=== PATIENT | female | born 1955 | race Caucasian/White ===

== ENCOUNTER 2018-07-23 08:50 | Day surgery (SDC) | payer MEDICARE, OTHER, SELFPAY ==
[2018-07-23] VITALS (10 sets, daily range): BP systolic 89–112; BP diastolic 51–75; PULSE 71–90; RESP 16; TEMP 36.1–37.1; O2SAT 90–96; BMI 28.2
--- NOTE | 2018-07-23 | IMM_PTH ---
PATIENT: JULIO JOHNSON LOC: [facility] [place] U#:[id number] AGE/SX: 63/F ROOM: RE07/23/[address]: Dr. Sole Linder MD : 1955 BED: DIS: 07/23/2018 SPEC #: [id number] RECD: 07/27/18 13:57 STATUS: PRERNA REQ #: [id number] JAJA: 07/23/18 00:[address]: Sole Linder DEPT: IMMUNOHISTOCHEMISTRY RECD BY: Mary Madsen ENTERED: 07/27/18 13:58 SP TYPE: IMMUNO OTHR DR: Dr. Samson Bauman DO Tissues: A - Axillary lymph node, NOS B - Axillary lymph node, NOS Procedures: CK7 (add) E-CAD (add) Pankeratin (initial) GATA3 (add) PHYSICIAN & INSTITUTION [place] [id number] SPECIMEN INFORMATION: Tissue Source: A - Right axillary lymph nodes, B - Additional right axillary lymph nodes, C - Right breast lumpecotmy Clinical Info: Right breast cancer, right breast intraductal papilloma Specimen Number: [id number] A1, B & C1 CPT code: 32075 x3, 11613 x4 METHODOLOGY: Deparaffinized sections of prefer/formalin-fixed tissue or PAP/DQ stained slides are incubated with monoclonal/polyclonal antibodies/oligonucleotide probes. Localization is made via biotin free immunoperoxidase method. Appropriate controls are performed and reacted as expected. Results on target cell population are indicated in the following table: RESULTS: ANTIBODY / CLONE RESULT Block A1 AE1-3 (AE1/AE3/PCK26) negative CK7 (OV-TL12/30) negative Block B AE1-3 (AE1/AE3/PCK26) negative CK7 (OV-TL12/30) negative Block C1 AE1-3 (AE1/AE3/PCK26) positive GATA3 (L50-823) positive E-Cad (ECH-6) positive These tests were developed and their performance characteristics determined by [facility]. They may not have been cleared or approved by the U.S. Food and Drug Administration. The FDA has determined that such clearance or approval is not necessary. INTERPRETATION: A. Right axillary lymph nodes, biopsy: Two out of two lymph nodes negative for carcinoma. B. Additional right axillary lymph nodes, biopsy: Three out of three lymph nodes negative for carcinoma. C. 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 AM:rg 07/28/18 AM:rg 07/29/18
--- NOTE | 2018-07-23 | IMM_PTH ---
PATIENT: JULIO JOHNSON LOC: [facility] [place] U#:[id number] AGE/SX: 63/F ROOM: RE07/23/[address]: Dr. Sole Linder MD : 1955 BED: DIS: 07/23/2018 SPEC #: [id number] RECD: 07/27/18 13:57 STATUS: PRERNA REQ #: [id number] JAJA: 07/23/18 00:[address]: Sole Linder DEPT: IMMUNOHISTOCHEMISTRY RECD BY: Mary Madsen ENTERED: 07/27/18 13:58 SP TYPE: IMMUNO OTHR DR: Dr. Samson Bauman DO Tissues: A - Axillary lymph node, NOS B - Axillary lymph node, NOS Procedures: CK7 (add) Pankeratin (initial) PHYSICIAN & INSTITUTION [place] [address] SPECIMEN INFORMATION: Tissue Source: A - Right axillary lymph nodes, B - Additional right axillary lymph nodes Clinical Info: Right breast cancer, right breast intraductal papilloma Specimen Number: [id number] A1 & B CPT code: 03387 x2, 69080 x2 METHODOLOGY: Deparaffinized sections of prefer/formalin-fixed tissue or PAP/DQ stained slides are incubated with monoclonal/polyclonal antibodies/oligonucleotide probes. Localization is made via biotin free immunoperoxidase method. Appropriate controls are performed and reacted as expected. Results on target cell population are indicated in the following table: RESULTS: ANTIBODY / CLONE RESULT Block A1 AE1-3 (AE1/AE3/PCK26) negative CK7 (OV-TL12/30) negative Block B AE1-3 (AE1/AE3/PCK26) negative CK7 (OV-TL12/30) negative These tests were developed and their performance characteristics determined by [facility]. They may not have been cleared or approved by the U.S. Food and Drug Administration. The FDA has determined that such clearance or approval is not necessary. INTERPRETATION: A. Right axillary lymph nodes, biopsy: Two out of two lymph nodes negative for carcinoma. B. Additional right axillary lymph nodes, biopsy: Three out of three lymph nodes negative for carcinoma. AM:marjorie 07/28/18
--- NOTE | 2018-07-23 | AXNB_PTH ---
PATIENT: JULIO JOHNSON LOC: [facility] [place] U#:[id number] AGE/SX: 63/F ROOM: RE07/23/[address]: Dr. Sole Linder MD : 1955 BED: DIS: 07/23/2018 SPEC #: [id number] RECD: 07/23/18 12:49 STATUS: PRERNA RESonu #: [id number] JAJA: 07/23/18 00:[address]: Sole Linder DEPT: SURGICAL PATHOLOGY RECD BY: Mary Madsen ENTERED: 07/23/18 13:52 SP TYPE: AX NODE BX OTHR DR: Dr. Samson Bauman, DO Tissues: A - Axillary lymph node, NOS B - Axillary lymph node, NOS C - Right breast, NOS D - Right breast, NOS Procedures: Frozen Section (charge) Surgery Specimen Level V HEADER OPERATION: Breast lumpectomy, NL x2, SN biopsy with Neoprobe, frozen section PRE-OP DIAGNOSIS: Right breast cancer, right breast intraductal papilloma TISSUE SUBMITTED: A - Right axillary lymph node tissue sent for FS at 1243, B - Right axillary lymph node tissue sent for FS at 1302, C - Right breast lumpectomy deep mid lower depth, cancer site, one long suture - lateral, one short suture - superior, two short sutures - posterior for FS, D - Right breast lumpectomy central anterior depth FROZEN SECTION DIAGNOSIS A. Right axillary lymph nodes, biopsy: Two out of two lymph nodes negative for carcinoma. B. Additional right axillary sentinel lymph nodes, biopsy: Three out of three lymph nodes negative for carcinoma. AM:marjorie 07/23/18 MICROSCOPIC DIAGNOSIS A. Right axillary sentinel lymph nodes, biopsy: Two out of two lymph nodes negative for carcinoma. B. Additional right axillary sentinel lymph nodes, biopsy: Three out of three lymph nodes negative for carcinoma. C. 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 See Cancer checklist below. D. Right breast lumpectomy central anterior depth, excision: Intraductal hyperplasia with focal atypia. Fibrocystic change and adenosis. Focal intraductal papilloma. No evidence of invasive carcinoma. AM:marjorie 07/28/18 COMMENT INVASIVE BREAST CANCER SUMMARY: Specimen: Excision with wire guidance Procedure: Partial breast Specimen integrity: Single intact specimen. Specimen size: 8.3 x 4 x 1.5 cm Specimen laterality: Right breast Invasive tumor: Invasive tumor size: 5 x 4 x 3 mm Tumor focality: Single focus Macroscopic and Microscopic extent of tumor: Skin: No skin present. Nipple: Not present. Skeletal muscle: Not present. Histologic type of invasive carcinoma: Invasive ductal carcinoma Histologic Grade (Perri grade): Glandular/tubular differentiation score: 3 Nuclear pleomorphism score: 2 Mitotic count score: 1 Overall grade: Grade 1 (total score of 5) Margins: Uninvolved by invasive carcinoma. Distance from closest (medial) margin - 4 mm Lymph-Vascular invasion: Not identified Dermal lymph-vascular invasion: Not applicable Ductal carcinoma in situ (DCIS): Estimated size (extent) of DCIS: 6.5 x 3.5 x 3 mm Number of blocks with DCIS: 4 out of 10 Architectural patterns: Cribriform and focal comedo Nuclear grade: grade 2 Necrosis: Not present Extensive intraductal component: Present Lobular carcinoma in situ (LCIS): Not present Lymph nodes: Number of sentinel lymph nodes examined: 5 Total number of lymph nodes examined (sentinel and nonsentinel): 5 No evidence of macrometastases, micrometastases or isolated tumor cells. See specimens A & B. Microcalcifications: Present in non-neoplastic tissue. Treatment effect: Unknown Additional pathologic findings: Fibrocystic change and adenosis. Ancillary studies: Previously performed on same tumor ([facility] [id number]). ER: Greater than 90%, strong WA: Greater than 90%, strong Her2 kennedy: negative (1+) Immunohistochemistry PATHOLOGIC STAGE: pT1b N0(sn) Mx The above summary is in compliance with [employer] [place] Path[employer] (CAP) Cancer Protocols Checklist and [place] Joint Committee on Cancer (AJCC), Staging Manual, 8th Ed. A & B. Immunohistochemistry ([id number]) supports the above diagnosis. Case has been reviewed in consultation with Dr. Renteria who concurs with the above diagnosis. IDC:[id number] MICROSCOPIC DESCRIPTION Slides are reviewed. GROSS DESCRIPTION A - Received fresh for frozen section consultation labeled with the patient's name is a specimen designated right axillary sentinel lymph node tissue. The specimen consists of an irregular fragment of yancey-yellow fibrofatty tissue measuring 3 x 1 x 0.7 cm. Dissection reveals two nodules averaging 1 cm in greatest dimension. The nodules are submitted in their entirety for frozen section consultation in two blocks. B - Received fresh for frozen section consultation labeled with the patient's name is a specimen designated additional right axillary sentinel lymph node tissue. The specimen consists of an irregular fragment of yancey-yellow fibrofatty tissue measuring 1.5 x 1 x 0.5 cm. Dissection reveals three nodules ranging in size from 0.5 to 1 cm. The nodules are submitted in their entirety in one cassette for frozen section consultation. C - Received fresh for OR consultation labeled with the patient's name is a specimen designated right breast lumpectomy. The specimen consists of a yancey-yellow fibrofatty tissue measuring 8.3 x 4 x 1.5 cm and weighing 24.6 gm. The specimen is differentially inked as follows: anterior - yellow, posterior - black, superior - blue, inferior - green, medial - red and lateral - orange. The specimen is serially sectioned. No distinct mass lesions suspicious for malignancy are identified. This gross impression is conveyed to the surgeon intraoperatively. The specimen is sectioned and submitted in 12 cassettes. D - Received in fixative is one container labeled with the patient's name and designated right breast lumpectomy central anterior depth. The specimen consists of an irregular fragment of yancey-yellow fibrofatty tissue containing a wire measuring 5 x 3.5 x 2.5 cm and weighing 16.2 gm. No orientation is provided. The external surface is inked in black ink. The specimen is serially sectioned to reveal somewhat indurated yellow-yancey cut surfaces. No distinct mass lesion is seen. The specimen is serially sectioned and submitted in its entirety in nine cassettes. / AM:marjorie 07/26/18 TC:0 CPT: 31692 x3, 71616 x2, 34939
--- NOTE | 2018-07-23 07:47 | HP.PCM_ITS ---
History and Physical Date of Admission: 07/23/18 Divya Szymanski 1955 ? ? PRIMARY CARE PHYSICIAN: Samson Bauman, DO ? CHIEF COMPLAINT: newly diagnosed right breast cancer ? HPI: The patient is a 63 year old female presents with abnormal right breast mammograms and ultrasound. Denies nipple discharge. Denies palpable breast masses. Denies previous breast biopsies or breast surgery. No immediate family history of breast or ovarian cancer. Father's sister had breast cancer. ? US 06/08/18 - '1cm irregular equal density mass in the right breast at 6:00 middle depth (this correlates with mammographic findings) and 8mm oval mass in the right breast at 10:00 middle depth, no axillary adenopathy ? US right breast needle core biopsy 07/02/18 Right breast, superior, ultrasound-guided core biopsy with clip placement: - Fragments of intraductal papilloma with apocrine metaplasia. Right breast, inferior, ultrasound-guided core biopsy with clip placement: - Invasive carcinoma with mixed ductal and lobular features. Estrogen Receptor (ER)? ?Positive (>90%) ? ?Stain intensity: ?strong Progesterone Receptor (PgR) ? ?Positive (>90%) ? ?Stain intensity: ?strong HER2 (ERBB2) IMMUNOHISTOCHEMISTRY ASSAY Interpretation: NEGATIVE ? Patient presents for discussion of options for treatment. ? PAST MEDICAL HISTORY ? Dysphagia ? ? Esophageal reflux ? ? Genital herpes, unspecified 1978 ? PMH - PAST MEDICAL HISTORY OF 1993 ? CONDYLOMA ? PAST SURGICAL HISTORY ? CATARACT EXTRACTION HX Bilateral 2018 ? DELIVERY ONLY ?1987? , low cervical/BTO ? COLONOSCOP W/ OR W/O [facility] SPEC ? 05/22/10 ? EGD W/O [facility] SPECIMEN W/BX ? 05/22/10 ? EGD W/O OR W/BRUSH/WASH ? 03/30/2014 ? LIGATE FALLOPIAN TUBE ?1987? Tubal ligation ? REMOVAL OF TONSILS,<12 Y/O ? Current Outpatient Prescriptions: dexamethasone 0.1% 0.1 % ophthalmic solution 1 Drop twice daily as needed. Into ear canals for itching diazePAM (VALIUM) 5 mg tablet Take 1 tablet by mouth every 6 hours as needed for Sedation (take 1-2 tablets about one hour prior to the procedure) for up to 1 day. diphenhydrAMINE (BENADRYL) 25 mg tablet Take 25 mg by mouth every 6 hours as needed. ? ? ALLERGIES: Animals [Other] ? PERSONAL HISTORY: Social History Marital status: Single Spouse name: Years of education: Number of children: 4 Occupational History Occupation Employer Comment policy processing [employer] Social History Main Topics Smoking status: Never Smoker Smokeless tobacco: Never Used Alcohol use: Yes Comment: occasional Drug use: No Sexual activity: Yes Partners with: Male Social History Narrative Boyfriend, has grown children, Goes to [place] to visit dtr and granddtr Jodi 4 yo yearly in Fall ([facility] 11/2012) ? FAMILY HISTORY ? Breast Cancer Paternal Aunt ? ? other (Other) Father ?? parkinson's disease ? other (Other) Paternal Aunt ?? parkinson's disease ? Diabetes Mother ? ? ? REVIEW OF SYSTEMS: General: The patient denies fatigue, denies weight loss, denies weight gain, denies feeling hot, and denies feelings of cold. Eyes: The patient denies glaucoma, notes eye injury/surgery, does not wear glasses or contacts. Ear/Nose/Throat: The patient denies allergies, denies hayfever, denies ear infections, and denies bloody noses. Cardiovascular: The patient denies chest pain, denies heart disease, denies high blood pressure,denies cardiac stent, denies prior heart attack, denies irregular heart beat, denies high cholesterol, denies poor circulation, denies heart failure, other cardiac issues, denies claudication, denies cold feet, denies peripheral arterial stent. Respiratory: The patient denies tuberculosis, denies pneumonia, denies frequent cough, denies pulmonary embolism, denies shortness of breath, and denies coughing up blood. Gastrointestinal: The patient denies difficulty swallowing, notes acid reflux, denies ulcers, denies vomiting, denies jaundice/hepatitis, denies gallbladder problems, denies black or tarry stools, denies hemorrhoids, denies bleeding from rectum, denies diverticulitis, denies constipation, denies diarrhea, denies loss of stool control, and denies hernias. Kidney/Bladder: The patient denies kidney stones, denies urine infections, and denies bloody urine. Skin: The patient denies a history of skin cancer, denies bleeding/changing moles, and denies a history of skin rash. Neurologic: The patient denies a history of epilepsy/convulsions, denies headaches, denies head/spinal injuries, and denies stroke/TIA. Psychiatric: The patient denies psychiatric medications, denies depression, and denies voices, denies substance abuse. Endocrine: The patient denies thyroid disorders, denies diabetes, and denies hormonal problems. Hematologic: The patient denies a history of bruising, denies bleeding, and denies anemia, denies blood clots. Infections: The patient denies a history of measles and mumps, denies rheumatic fever, and notes sexually transmitted diseases. Musculoskeletal: The patient denies back pain/injury, denies back problems, denies sciatica, denies knee/foot trouble, denies arthritis, or denies gout. Obstetrical: menarche onset at age 11, , first at age 23, breast feeding total about 1 year, BCP use initially at age 19 for about a year, menopause at age 43, HRT < 1 y ? PHYSICAL EXAMINATION: General: The patient is 63 year old female, well nourished, well hydrated in no acute distress. The patient is oriented to time, place, and person. VITALS: Blood pressure 112/72, pulse 76, temperature 37.2 ?C (98.9 ?F), height 156.2 cm (5' 1.5), weight 68.9 kg (152 lb). Body mass index is 28.26 kg/m?. Head ? Normocephalic. EOM intact with sclera clear and no icterus noted. Mouth with mucus membranes moist. Neck - supple with no jugular venous distention noted. Trachea is midline. No carotid bruits noted. No thyroid enlargement or thyroid nodules detected. No masses noted. Chest/breast ? no asymmetry of breasts noted, no suspicious skin lesions noted, no nipple discharge and both nipples everted, nodular breast tissue palpated bilaterally, no suspicious lesions palpated - wounds of breast - healing well slight ecchymoses no evidence of infection Lungs ? clear to auscultation. Normal breath sounds. No rales/rhonchi/wheezing noted. No labored breathing noted, such as retractions. No cough heard. Heart ? normal S1 and S2 auscultated. No rubs/clicks/murmurs noted. Regular rate. Abdomen ? soft and benign. Normal bowel sounds. No abdominal bruits noted. No distention or tympany noted. Extremities ? no calf tenderness noted. No pitting edema noted. Skin ? normal skin integrity. Lymph ? no cervical adenopathy detected, no supraclavicular adenopathy detected, no axillary adenopathy detected Neurological ? gait normal, no focal deficits noted Psych ? calm and appropriate RADIOLOGIC STUDIES: As Noted ? ? IMPRESSION: newly diagnosed right breast cancer, intraductal papilloma PLAN: I have discussed the above with the patient. I have discussed options of treatment I have given the patient options for initial surgical treatment. Options are the following: lumpectomy followed by radiation therapy vs. mastectomy vs. mastectomy followed by immediate reconstruction. I have described the procedures to the patient. I have described the advantages and disadvantages of the options, but I have told the patient that among the options, the survival rate for breast cancer is the same. I have told the patient that with all of the surgeries that a sentinel lymph node biopsy is required. I have described the procedure of sentinel lymph node biopsy to the patient. I have told the patient that if the biopsy is positive for metastatic disease, then radiation to the axilla is required. I have told the patient that adjuvant chemotherapy will be required should the lymph nodes reveal metastatic disease. I have counseled the patient the risks of surgery, including but not limited to: infection, bleeding, scar tissue, seroma and persistent seroma, lymph leak, injury to any blood vessels, injury to any nerves (particularly the long thoracic, the thoracodorsal, and the second intercostal brachial and the resultant sequelae), lymphedema, cosmetic deformity, dysthesias, wound infections, further surgery (especially if margins are not clear), complications of anesthesia, etc. ? the patient understands She chooses right breast lumpectomy to be followed by radiation therapy. Also given that she had findings of intraductal papilloma from the other biopsy site, I have offered needle localization wide excision of this area as well and patient agrees. The patient wishes to proceed. Will plan on right breast lumpectomies x 2 via wire localization and sentinel lymph node biopsy to be done at [facility]. I have answered all questions to the patient?s satisfaction and the patient has no further questions.
--- NOTE | 2018-07-23 07:50 | NM_ITS ---
PROCEDURE: NUCLEAR MEDICINE Injection Roosevelt Node - RIGHT breast(s). REASON FOR EXAM: Female, 63 years old. Right breast cancer. TECHNIQUE: Roosevelt node localization using radionuclide methods of the RIGHT breast(s) was performed following subcutaneous administration of 1.1 mCi of of sulfur colloid Tc-99m. FINDINGS: 1.1 mCi of technetium labeled sulfur colloid was injected subcutaneously in 4 equal aliquots at the site of the right breast biopsy. NM/Lymph Node Injection Only IMPRESSION: Subcutaneous injection of 1.1 mCi of intracerebral sulfur colloid for sentinel node imaging. Electronically Signed: Duran Elise MD at 11:08 EST , Service support ,
--- NOTE | 2018-07-23 10:33 | BI_ITS ---
SURGICAL BREAST SPECIMEN RADIOGRAPH CLINICAL: Document presence of tissue clip marker in biopsy specimen. FINDINGS: Specimen shows presence of tissue clip marker. Electronically Signed: Duran Elise MD at 14:21 EST , Service support , BI/Breast Biopsy Specimen
--- NOTE | 2018-07-23 11:30 | BI_ITS ---
SURGICAL BREAST SPECIMEN RADIOGRAPH CLINICAL: Document presence of calcifications in biopsy specimen. FINDINGS: Specimen shows presence of calcifications. Electronically Signed: Duran Elise MD at 14:22 EST , Service support , BI/Breast Biopsy Specimen
[2018-07-23] MEDS: Cefazolin 2 GM in 0.9% Normal Saline 100 ML IV (12:05)
--- NOTE | 2018-07-23 12:05 | PCM.IMDPSTOP ---
Immediate Post-Op Note Date of Procedure: 07/23/18 Primary Surgeon/Physician: Sole Linder MD it security project manager: Haydee Esparza Pre-Operative Diagnosis: right breast cancer, right breast intraductal papilloma Post-Operative Diagnosis: same Surgery/Procedure Performed:: right breast lumpectomy via wire localization x 2, right axillary sentinel lymph node biopsy Description of Surgical Findings:: right breast lumpectomy via wire localization - cancer site at lower mid deep and papilloma site at central - mid depth, sentinel lymph nodes - 5 out 5 negative for metastatic disease, cancer lumpectomy site - no mass seen- can't clear margins sent for permanent Estimated Blood Loss: 30 ml Specimen's removed: right axillary lymph node tissue, right breast lumpectomy - central anterior depth, right breast lumpectomy - deep mid lower depth (cancer site) Type of Anesthesia:: General ASA Class: ASA2 Mod Systematic Disease - Admit VTE Documentation VTE Present on Admission: Yes VTE Mechan Device Prophylaxis: SCD's
--- NOTE | 2018-07-23 12:08 | OP.PN_ITS ---
Immediate Post-Op Note Date of Procedure: 07/23/18 Primary Surgeon/Physician: Sole Linder MD bog worker: Haydee Esparza Pre-Operative Diagnosis: right breast cancer, right breast intraductal papilloma Post-Operative Diagnosis: same Surgery/Procedure Performed:: right breast lumpectomy via wire localization x 2, right axillary sentinel lymph node biopsy Description of Surgical Findings:: right breast lumpectomy via wire localization - cancer site at lower mid deep and papilloma site at central - mid depth, sentinel lymph nodes - 5 out 5 negative for metastatic disease, cancer lumpectomy site - no mass seen- can't clear margins sent for permanent Estimated Blood Loss: 30 ml Specimen's removed: right axillary lymph node tissue, right breast lumpectomy - central anterior depth, right breast lumpectomy - deep mid lower depth (cancer site) Type of Anesthesia:: General ASA Class: ASA2 Mod Systematic Disease - Admit VTE Documentation VTE Present on Admission: Yes VTE Mechan Device Prophylaxis: SCD's
[2018-07-23] MEDS: Isosulfan Blue 1% 5 ML Vial (12:20)
[2018-07-23] MEDS: Bupiv/Epi 0.25% 30 ML Vial (12:30)
--- NOTE | 2018-07-23 14:23 | PCM.OPRPT ---
Report of Operation Date of Procedure: 07/23/18 Pre-Operative Diagnosis: right breast cancer, right breast intraductal papilloma Post-Operative Diagnosis: same Surgery/Procedure Performed:: right breast lumpectomy via wire localization x 2, right axillary sentinel lymph node biopsy Description of Surgical Findings:: right breast lumpectomy via wire localization - cancer site at lower mid deep and papilloma site at central - mid depth, sentinel lymph nodes - 5 out 5 negative for metastatic disease, cancer lumpectomy site - no mass seen- can't clear margins sent for permanent design draftsman: Haydee Esparza Type of Anesthesia:: General Anesthesiologist: Trevon Cook Specimen's removed: right axillary lymph node tissue, right breast lumpectomy - central anterior depth, right breast lumpectomy - deep mid lower depth (cancer site) Estimated Blood Loss (mL): 30 ml Fluids Replaced: 1400 ml RL Description of Procedure: After informed consent was given, the patient was brought into the Breast Stereotactic Radiology suite. Appropriate time out protocol was followed. She was then placed in the prone position on the Cohen stereotactic table. The patient?s right breast was placed in the opening at the head of the table. A nut grinder compression mammogram was then obtained in the lateral view. The inferior lesion was approached first. The marker clip that was previously placed was identified. Stereo pictures of the lesion were then taken for XYZ coordinates. The Kopans needle was then positioned where it would be entering into the patient?s breast. The skin at this site was then cleansed with a surgical skin preparation. The skin and subcutaneous tissues at this site were then infiltrated with 1% xylocaine. The Kopans needle was then positioned into the patient?s breast at the proper coordinates of depth. A nut grinder film was obtained which revealed the wire in proper position. The superior lesion was then approached next. A nut grinder compression mammogram was again obtained in the lateral view. The superior marker clip that was identified. Stereo pictures of the lesion were then taken for XYZ coordinates. A Bards needle was then positioned where it would be entering into the patient?s breast. The skin at this site was then cleansed with a surgical skin preparation. The skin and subcutaneous tissues at this site were then infiltrated with 1% xylocaine. The needle\wire was then positioned into the patient?s breast at the proper coordinates of depth. A nut grinder film was obtained which revealed the wire in proper position. The patient was then placed in the supine position and the wires were taped into place. A unilateral mammogram in the CC and MLO view were then taken for use in the OR. The patient tolerated this portion of the procedure well and was brought to the AC awaiting surgery in the OR. The patient was brought to the OR. Appropriate time out protocol was followed. She was then placed in the supine position on the operating room table. She was then placed under general anesthesia. 2 cc of lymphozurine blue dye diluted 50:50 was then injected into the periareolar area and around the biopsy cavity with a 25 g needle. Gentle massage was then done for a few minutes. The patient's right chest and neck area was then prepped with a sterile surgical skin preparation and appropriate sterile surgical drapes were placed. The Neoprobe device was brought into the operative field. 10 second count over the tumor site was 1334. A skin incision was made in the inferior portion of the hair bearing area of the right axilla. It was carried through to the subcutaneous tissues using electrocautery. Any hemorrhage was controlled with electrocautery. A Weitlaner retractor was used for increased operative exposure. The blue lymphatic vessels were then followed by blunt dissection until blue colored lymph anil tissue was identified. These were from the surrounding tissue by blunt dissection and the vascular pedicles ligated with ligaclips and vicryl suture. 10 second count of the lymph tissue was 8. The lymph tissue were then forwarded to pathology for frozen section. Pathology revealed that five lymph nodes were negative for metastatic disease. Neoprobe 10 second count in the axilla was 0. No further palpable tissue or visible blue tissue was noted. Hemostasis was controlled with electrocautery. Neva was applied to the cavity. The fascia was reapproximated with 2-0 vicryl suture. The skin edges were reapproximated with 3-0 vicryl suture in a horizontal mattress fashion and then further closed with running 4-0 monocryl in a subcuticular fashion. The right breast lumpectomies were approached next. The superior (benign) lesion was approached first. Wires had already been placed in the stereotactic biopsy room in the radiology department as described above. The skin and subcutaneous tissues at the superior site were infiltrated with local anesthetic. A transverse skin incision was then made with a 15 blade scalpel and carried down through to the subcutaneous tissues and incorporated the wire insertion site. Hemostasis was controlled with electrocautery. The breast tissue surrounding the wire was then carefully palpated out and from the surrounding tissues using electrocautery. The breast tissue, once from the breast, was then forwarded to the radiology department, where a specimen mammogram revealed that the marker clip was within the specimen. The breast tissue was then forwarded to pathology for analysis. This was for an intraductal papilloma by needle core biopsies, the tissue was sent to permanent section. The wound cavity was carefully examined. No further suspicious tissue was palpated or visualized. Hemostasis was carefully controlled with electrocautery. The subdermal tissues were then approximated with vicryl suture. The incision was then reapproximated close using running monocryl suture. The inferior (cancer) lesion was approached next. The skin and subcutaneous tissues at the inferior site were infiltrated with local anesthetic. A transverse skin incision was then made with a 15 blade scalpel and carried down through to the subcutaneous tissues and incorporated the wire insertion site. Hemostasis was controlled with electrocautery. The breast tissue surrounding the wire was then carefully palpated out and from the surrounding tissues using electrocautery. The breast tissue, once from the breast, was then forwarded to the radiology department, where a specimen mammogram revealed that the marker clip was within the specimen. The breast tissue was then forwarded to pathology for analysis. Pathology review revealed that there was no mass noted to be able to determine margin status, therefore, the entire tissue was placed for permanent analysis. The wound cavity was carefully examined. No further suspicious tissue was palpated or visualized. Hemostasis was carefully controlled with electrocautery. The subdermal tissues were then approximated with vicryl suture. The incision was then reapproximated close using running monocryl suture. Cavilon and steristrips were then placed to reinforce the skin closure. A sterile dressing was then applied. The patient was then brought to the Recovery Room in stable condition. - Complications none noted - Admit VTE Documentation VTE Present on Admission: Yes VTE Mechan Device Prophylaxis: SCD's
--- NOTE | 2018-07-23 14:36 | OP.PCM_ITS ---
Report of Operation Date of Procedure: 07/23/18 Pre-Operative Diagnosis: right breast cancer, right breast intraductal papilloma Post-Operative Diagnosis: same Surgery/Procedure Performed:: right breast lumpectomy via wire localization x 2, right axillary sentinel lymph node biopsy Description of Surgical Findings:: right breast lumpectomy via wire localization - cancer site at lower mid deep and papilloma site at central - mid depth, sentinel lymph nodes - 5 out 5 negative for metastatic disease, cancer lumpectomy site - no mass seen- can't clear margins sent for permanent sleeping bag filler: Haydee Esparza Type of Anesthesia:: General Anesthesiologist: Trevon Cook Specimen's removed: right axillary lymph node tissue, right breast lumpectomy - central anterior depth, right breast lumpectomy - deep mid lower depth (cancer site) Estimated Blood Loss (mL): 30 ml Fluids Replaced: 1400 ml RL Description of Procedure: After informed consent was given, the patient was brought into the Breast Stereotactic Radiology suite. Appropriate time out protocol was followed. She was then placed in the prone position on the Cohen stereotactic table. The patient?s right breast was placed in the opening at the head of the table. A passenger service representative compression mammogram was then obtained in the lateral view. The inferior lesion was approached first. The marker clip that was previously placed was identified. Stereo pictures of the lesion were then taken for XYZ coordinates. The Kopans needle was then positioned where it would be entering into the patient?s breast. The skin at this site was then cleansed with a surgical skin preparation. The skin and subcutaneous tissues at this site were then infiltrated with 1% xylocaine. The Kopans needle was then positioned into the patient?s breast at the proper coordinates of depth. A passenger service representative film was obtained which revealed the wire in proper position. The superior lesion was then approached next. A passenger service representative compression mammogram was again obtained in the lateral view. The superior marker clip that was identified. Stereo pictures of the lesion were then taken for XYZ coordinates. A Bards needle was then positioned where it would be entering into the patient?s breast. The skin at this site was then cleansed with a surgical skin preparation. The skin and subcutaneous tissues at this site were then infiltrated with 1% xylocaine. The needle\wire was then positioned into the patient?s breast at the proper coordinates of depth. A passenger service representative film was obtained which revealed the wire in proper position. The patient was then placed in the supine position and the wires were taped into place. A unilateral mammogram in the CC and MLO view were then taken for use in the OR. The patient tolerated this portion of the procedure well and was brought to the AC awaiting surgery in the OR. The patient was brought to the OR. Appropriate time out protocol was followed. She was then placed in the supine position on the operating room table. She was then placed under general anesthesia. 2 cc of lymphozurine blue dye diluted 50:50 was then injected into the periareolar area and around the biopsy cavity with a 25 g needle. Gentle massage was then done for a few minutes. The patient's right chest and neck area was then prepped with a sterile surgical skin preparation and appropriate sterile surgical drapes were placed. The Neoprobe device was brought into the operative field. 10 second count over the tumor site was 1334. A skin incision was made in the inferior portion of the hair bearing area of the right axilla. It was carried through to the subcutaneous tissues using electrocautery. Any hemorrhage was controlled with electrocautery. A Weitlaner retractor was used for increased operative exposure. The blue lymphatic vessels were then followed by blunt dissection until blue colored lymph anil tissue was identified. These were from the surrounding tissue by blunt dissection and the vascular pedicles ligated with ligaclips and vicryl suture. 10 second count of the lymph tissue was 8. The lymph tissue were then forwarded to pathology for frozen section. Pathology revealed that five lymph nodes were negative for metastatic disease. Neoprobe 10 second count in the axilla was 0. No further palpable tissue or visible blue tissue was noted. Hemostasis was controlled with electrocautery. Neva was applied to the cavity. The fascia was reapproximated with 2-0 vicryl suture. The skin edges were reapproximated with 3-0 vicryl suture in a horizontal mattress fashion and then further closed with running 4-0 monocryl in a subcuticular fashion. The right breast lumpectomies were approached next. The superior (benign) lesion was approached first. Wires had already been placed in the stereotactic biopsy room in the radiology department as described above. The skin and subcutaneous tissues at the superior site were infiltrated with local anesthetic. A transverse skin incision was then made with a 15 blade scalpel and carried down through to the subcutaneous tissues and incorporated the wire insertion site. Hemostasis was controlled with electrocautery. The breast tissue surrounding the wire was then carefully palpated out and from the surrounding tissues using electrocautery. The breast tissue, once from the breast, was then forwarded to the radiology department, where a specimen mammogram revealed that the marker clip was within the specimen. The breast tissue was then forwarded to pathology for analysis. This was for an intraductal papilloma by needle core biopsies, the tissue was sent to permanent section. The wound cavity was carefully examined. No further suspicious tissue was palpated or visualized. Hemostasis was carefully controlled with electrocautery. The subdermal tissues were then approximated with vicryl suture. The incision was then reapproximated close using running monocryl suture. The inferior (cancer) lesion was approached next. The skin and subcutaneous tissues at the inferior site were infiltrated with local anesthetic. A transverse skin incision was then made with a 15 blade scalpel and carried down through to the subcutaneous tissues and incorporated the wire insertion site. H emostasis was controlled with electrocautery. The breast tissue surrounding the wire was then carefully palpated out and from the surrounding tissues using electrocautery. The breast tissue, once from the breast, was then forwarded to the radiology department, where a specimen mammogram revealed that the marker clip was within the specimen. The breast tissue was then forwarded to pathology for analysis. Pathology review revealed that there was no mass noted to be able to determine margin status, therefore, the entire tissue was placed for permanent analysis. The wound cavity was carefully examined. No further suspicious tissue was palpated or visualized. Hemostasis was carefully controlled with electrocautery. The subdermal tissues were then approximated with vicryl suture. The incision was then reapproximated close using running monocryl suture. Cavilon and steristrips were then placed to reinforce the skin closure. A sterile dressing was then applied. The patient was then brought to the Recovery Room in stable condition. - Complications none noted - Admit VTE Documentation VTE Present on Admission: Yes VTE Mechan Device Prophylaxis: SCD's
--- NOTE | 2018-07-23 14:52 | PCM.DC.BS ---
Discharge Diet: No Restrictions Discharge Activity: Return to Normal Activity, May not drive while taking narcotic pain medications. Additional Activity Instructions:: Wear supportive bra during the day. Avoid any pushing or pouncing on right breast Call your doctor if your incision/area has: Continuous Slow Oozing, Foul Smelling Discharge Call your doctor if you observe: Fever of 101 or Higher Additional Dressing/Incision Instructions:: Leave dressings in place. may get wet in shower but do not scrub. do not soak - no tub baths/swimming Additional Instructions: Recommended pain medication regimen: take 650 mg acetaminophen, then in three hours take 600 mg ibuprofen, then in three hours take 650 mg acetaminophen, then in three hours take 600 mg ibuprofen, and so on and can continue this for a few days Take narcotic pain medication for breakthrough pain and at night to help you sleep Wear supportive bra during day to prevent weight of breast pulling down on wounds Allergies/Adverse Reactions: Allergies No Known Allergies Allergy (Verified 07/13/18 13:58) Medications to take at Discharge Oxycodone [Oxyir] 5 mg PO Q8H PRN PRN 5 Days #15 tab 07/23/18 The following prescriptions were given: Oxycodone [Oxyir] 5 mg PO Q8H PRN PRN 5 Days #15 tab PRN Reason: Mod-Severe Pain (4-03/31) Primary Care Physician: Samson Bauman DO [Primary Care Provider] - Please Follow Up With: Sole Linder MD - call When: to be seen next week, please call for date and time, thank you
== END 2018-07-23 17:50 | disposition home or self-care (01) ==
LOC: SDC 08:52 → AC 08:54
PROVIDERS: Family Provider Student in an Organized Health Care Education/Training Program; PCP Student in an Organized Health Care Education/Training Program; Referring Provider Surgery; Visit Provider Surgery
PROC: (CPT 19301; principal; 2018-07-23 11:30)
DX: C50.911 Malignant neoplasm of unspecified site of right female breast (principal); N60.91 Unspecified benign mammary dysplasia of right breast; N60.11 Diffuse cystic mastopathy of right breast; D24.1 Benign neoplasm of right breast; N60.21 Fibroadenosis of right breast; Z79.899 Other long term (current) drug therapy
CPT/HCPCS: 00400; 19301; 38500; 19281; 19282; 38792; 76098; 88305; 88307; 88331; 88341; 88342; A9541; J7120; J2405; J3490; Q9968

== ENCOUNTER 2020-09-11 08:59 | Day surgery (SDC) | payer MEDICARE, OTHER, SELFPAY ==
[2018-07-23 09:15] VITALS: BMI 28.2
--- NOTE | 2020-09-09 17:24 | HP.PCM_ITS ---
History and Physical Date of Admission: 09/11/20 Divya Szymanski 1955 ? ? PRIMARY PHYSICIAN: Dr. Samson Bauman ? CHIEF COMPLAINT: abnormal breast ? HPI: The patient is a [id number] year old female with history of right breast cancer who presents with abnormal left breast radiographs. With regard to her history of right breast cancer, it was stage I ER/SC positive, s/p right breast lumpectomy/SLNBx on 07/23/2018. Patient did not want adjuvant hormonal therapy. ? She notes soreness at the incisional site of the right breast. She denies any palpable masses of the left breast. She notes no nipple discharge. She overall feels well. ? Mammo/US left breast 08/08/2020 There is 0.7 cm x 0.4 cm x 0.5 cm lobulated mass with a circumscribed margin in the left breast at 9 o'clock anterior depth 1 cm from the nipple. ?This lobulated mass is hypoechoic with a well-defined boundary and internal echoes. ?This correlates with mammography findings. IMPRESSION: SUSPICIOUS FINDING - BIOPSY SHOULD BE CONSIDERED The 0.7 cm x 0.4 cm x 0.5 cm lobulated mass in the left breast is suspicious of malignancy. ?An ultrasound guided biopsy is recommended. She underwent US guided left breast biopsy on 08/23/2020. Pathology revealed - Atypical papillary lesion - (Sections demonstrate nests of cells with focal fibrovascular cores. Immunohistochemical stains demonstrate the cells to be E- Cadherin and ER positive while smooth muscle myosin heavy chain and p40 demonstrates myoepithelial cell layer present consistent with the diagnosis.) ? ? PAST MEDICAL HISTORY ? Breast cancer (HCC) 2018 ? Dysphagia ? ? Esophageal reflux ? ? Genital herpes, unspecified 1978 ? PMH - PAST MEDICAL HISTORY OF 1993 ? CONDYLOMA ? ? PAST SURGICAL HISTORY ? BREAST LUMPECTOMY HX Right 07/23/2018 ? with sentinel lymph node biopsy ? CATARACT EXTRACTION HX Bilateral 2017 ? DELIVERY ONLY ? 1987 ? , low cervical/BTO ? COLONOSCOP W/ OR W/O BRS SPEC ? 05/22/10 ? Normal Colonoscopy ? EGD W/O [facility] SPECIMEN W/BX ? 05/22/10 ? esophagitis ? EGD W/O OR W/BRUSH/WASH ? 03/30/2014 ? EGD ? LIGATE FALLOPIAN TUBE ? 1987 ? Tubal ligation ? REMOVAL OF TONSILS,<12 Y/O ? ? ? Tonsillectomy ? ? Current Outpatient Medications ? OTC PRODUCT Vit d3 and vit b12 every other day ? ? ALLERGIES: Animals [Other] ? PERSONAL HISTORY: Social History ?Tobacco Use ? Smoking status: Never Smoker ? Smokeless tobacco: Never Used Substance Use Topics ? Alcohol use: Yes ? ? Comment: occasional ? Drug use: No ? FAMILY HISTORY ? Breast Cancer Paternal Aunt ? ? other (Other) Father ? ? parkinson's disease ? other (Other) Paternal Aunt ? ? parkinson's disease ? Diabetes Mother ? ? ? REVIEW OF SYSTEMS: General: The patient denies fatigue, denies weight loss, denies weight gain, denies feeling hot, and denies feelings of cold. Eyes: The patient denies glaucoma, NOTES eye injury/surgery, wears glasses or contacts. Ear/Nose/Throat: The patient NOTES allergies, denies hayfever, denies ear infections, and denies bloody noses. Cardiovascular: The patient denies chest pain, denies heart disease, denies high blood pressure,denies cardiac stent, denies prior heart attack, denies irregular heart beat, denies high cholesterol, denies poor circulation, denies heart failure, other cardiac issues, denies claudication, denies cold feet, denies peripheral arterial stent. Respiratory: The patient denies tuberculosis, denies pneumonia, denies frequent cough, denies pulmonary embolism, denies shortness of breath, and denies coughing up blood. Gastrointestinal: The patient denies difficulty swallowing, denies acid reflux, denies ulcers, denies vomiting, denies jaundice/hepatitis, denies gallbladder problems, denies black or tarry stools, denies hemorrhoids, denies bleeding from rectum, denies diverticulitis, denies constipation, denies diarrhea, denies loss of stool control, and denies hernias. Kidney/Bladder: The patient denies kidney stones, denies urine infections, and denies bloody urine. Skin: The patient denies a history of skin cancer, denies bleeding/changing moles, and denies a history of skin rash. Neurologic: The patient denies a history of epilepsy/convulsions, denies headaches, denies head/spinal injuries, and denies stroke/TIA. Psychiatric: The patient denies psychiatric medications, denies depression, and denies voices, denies substance abuse. Endocrine: The patient denies thyroid disorders, denies diabetes, and denies hormonal problems. Hematologic: The patient denies a history of bruising, denies bleeding, and denies anemia, denies blood clots. Infections: The patient denies a history of measles and mumps, denies rheumatic fever, and NOTES sexually transmitted diseases. Musculoskeletal: The patient denies back pain/injury, denies back problems, denies sciatica, denies knee/foot trouble, denies arthritis, or denies gout. When was patient's last Mammogram screening? 07/2020 Last Colonoscopy: 2009 Adrianna Ross LPN ? PHYSICAL EXAMINATION: General: The patient is 65 year old female, well nourished, well hydrated in no acute distress. The patient is oriented to time, place, and person. VITALS: Pulse 112, temperature 37.3 ?C (99.1 ?F), height 157.5 cm (5' 2), weight 64.6 kg (142 lb 6.4 oz), SpO2 94 %. Body mass index is 26.05 kg/m?. Head ? Normocephalic. EOM intact with sclera clear and no icterus noted. Mouth with mucus membranes moist. Neck - supple with no jugular venous distention noted. Trachea is midline. No carotid bruits noted. No thyroid enlargement or thyroid nodules detected. No masses noted. Chest/breast ? no asymmetry of breasts noted except for indentation of right lower outer quadrant of breast from surgery and postradiation changes, no suspicious skin lesions noted, no nipple discharge and both nipples everted, no breast masses noted. I ultrasounded the area of concern, however, I could not identify the abnormal lesion as specified in the radiological imagery. Lungs ? clear to auscultation. Normal breath sounds. No rales/rhonchi/wheezing noted. No labored breathing noted, such as retractions. No cough heard. Heart ? normal S1 and S2 auscultated. No rubs/clicks/murmurs noted. Regular rate. Abdomen ? soft and benign. Normal bowel sounds No abdominal bruits noted. Extremities ? no calf tenderness noted. No pitting edema noted. Skin ? normal skin integrity. Lymph ? no cervical adenopathy detected, no supraclavicular adenopathy detected, no axillary adenopathy detected Neurological ? gait normal, no focal deficits noted Psych ? calm and appropriate ? RADIOLOGIC STUDIES: As Noted ? IMPRESSION: atypical papillary lesion from needle core biopsy of left breast with history of right breast cancer s/p lump/XRT ? PLAN: I have discussed the above with the patient. I have recommended open breast biopsy via wire localization for obtaining further breast tissue for pathological review. I have explained the procedure. I have counseled patient as to risks of the procedure, including but not limited to: infection, bleeding, scar tissue, injury to any blood vessels/nerves, wound infection, hematoma, complications of anesthesia, etc. - she understands. The patient was offered a surgery/procedure. The provider and patient have discussed in detail the risk of exposure to and/or potential harm posed by the COVID-19 virus with having a surgery/procedure at this time versus the risk of delaying the surgery/procedure. It is not possible to know either the risk of delaying the surgery or procedure or chance of getting an infection with perfect accuracy, but a joint decision was made between the patient and the provider to proceed at this time with the scheduled surgery/procedure. She agrees to proceed. I have answered all questions to the patient?s satisfaction and the patient has no further questions. ? ? ? Sole Linder MD
--- NOTE | 2020-09-11 | IMM_PTH ---
PATIENT: JULIO JOHNSON LOC: [facility] [place] U#:[id number] AGE/SX: 65/F ROOM: RE09/11/[address]: Dr. Sole Linder MD : 1955 BED: DIS: 09/11/2020 SPEC #: [id number] RECD: 09/14/20 11:18 STATUS: PRERNA REQ #: [id number] JAJA: 09/11/20 00:[address]: Sole iLnder DEPT: IMMUNOHISTOCHEMISTRY RECD BY: Mary Madsen ENTERED: 09/14/20 11:19 SP TYPE: IMMUNO OTHR DR: MD Dr. Samson Cardenas DO Tissues: Left breast, NOS Procedures: CALPONIN-1 (add) CK5-6 (add) CK8 (add) E-CAD (add) HER2 KACIE (add) KI-67 (add) P53 (add) MT (add) P40 (add) ER (initial) PHYSICIAN & [address] [address] SPECIMEN INFORMATION: Tissue Source: Open breast biopsy, needle localization Clinical Info: Atypical papillary lesion, history breast cancer Specimen Number: [id number] #7 CPT code: 85948, 70840 x6, 36333 x3 METHODOLOGY: Deparaffinized sections of prefer/formalin-fixed tissue or PAP/DQ stained slides are incubated with monoclonal/polyclonal antibodies/oligonucleotide probes. Localization is made via biotin free immunoperoxidase method. Appropriate controls are performed and reacted as expected. Results on target cell population are indicated in the following table: RESULTS: ANTIBODY / CLONE RESULT Block 7 P53 (DO-7) negative Ki-67 (30-9) positive, 8% CK8 ([id number]) positive CK5-6 (D5 & 1684) negative Calponin-1 (IS526S) positive P40 (BC28) positive E-Cad (ECH-6) positive MORPHOMETRIC ANALYSIS ER (clone 6F11) positive (>95%, strong intensity) MT (clone 16/1E2) positive (>95%, strong intensity) Her-2Neu (clone CB11) negative (0) The prognostic test for HER2 is performed on formalin-fixed paraffin embedded tissue. A 3+ (positive) staining pattern is defined as intense, homogeneous, complete, circumferential membranous staining in >10% of contiguous tumor cells. A similar weak (2+) staining pattern is interpreted as equivocal. JAMES follow-up testing is recommended for all equivocal cases. Positivity/negativity for ER/MT is reported if > or < 1% of the tumor cells are immuno- reactive, respectively. The ASCO/CAP criteria is used for scoring. Reference: Journal of Clinical Oncology, 2013; 31:0231-1974 & 2010; 16:8404-9358. Duration of fixation: 32.5 Hrs; Sample Adequate: Yes. These assays have not been validated on decalcified tissues. Results should be interpreted with caution given the likelihood of false negativity on decalcified specimens. These tests were developed and their performance characteristics determined by [facility]. They may not have been cleared or approved by the U.S. Food and Drug Administration. The FDA has determined that such clearance or approval is not necessary. The above immunohistochemical/dualISH markers are ordered and reviewed by the Pathologist. INTERPRETATION: Left breast lumpectomy: Ductal carcinoma in situ. AM:marjorie 09/17/2020
--- NOTE | 2020-09-11 | BREAST_PTH ---
PATIENT: JULIO JOHNSON [place] [facility] [place][id number] AGE/SX: 65/F ROOM: RE09/11/[address]: Dr. Sole Linder MD : 1955 BED: DIS: 09/11/2020 SPEC #: [id number] RECD: 09/11/20 11:50 STATUS: PRERNA REQ #: [id number] JAJA: 09/11/20 00:[address]: Sole Linder DEPT: SURGICAL PATHOLOGY RECD BY: Payal Farias ENTERED: 09/11/20 12:45 SP TYPE: BREAST OTHR DR: MD Dr. Samson Cardenas DO Tissues: Breast, NOS Procedures: Surgery Specimen Level IV HEADER OPERATION: Open breast biopsy, needle localization PRE-OP DIAGNOSIS: Atypical papillary lesion from needle core biopsy of left breast with history of right breast cancer status post lump/XRT TISSUE SUBMITTED: Left breasts tissue MICROSCOPIC DIAGNOSIS Left breast, lumpectomy: Ductal carcinoma in situ, papillary and solid type, nuclear grade 1-2. See cancer checklist below. AM:marjorie 09/14/2020 COMMENT Immunohistochemistry ([id number]) supports the above diagnosis. DUCTAL CARCINOMA IN SITU SUMMARY: Procedure - wire-guided lumpectomy Specimen: Type: Partial breast Laterality: Left breast Size of DCIS: 4 x 4 x 3 mm Number of blocks with DCIS: 2 of 8 blocks Architectural pattern: cribriform and solid Nuclear grade: 1-2 Necrosis: not present Margins: Uninvolved by in situ carcinoma. Distance from closest margin: 2 mm from nearest inked margin (specimen not oriented). Regional lymph nodes: Not applicable Comment: No lymph nodes submitted. Microcalcifications: Present in non-neoplastic tissue. Additional Pathologic Findings: Fibrocystic change with associated microcalcifications. Focal intraductal hyperplasia without atypia. Microscopic intraductal papilloma. Ancillary Studies from this specimen ([id number]): ER - positive (>95%, strong intensity). NH - positive (>95%, strong intensity). Her2 kennedy ([facility]) - negative (o) Clinical history: Atypical papillary lesion. Pathologic Staging: pTis(DCIS) Nx Mx The above summary is in compliance with [employer] (CAP) Cancer Protocols Checklist and [place] Joint Committee on Cancer (AJCC), Staging Manual, 8th Ed. Reference is made to the patient's right breast lumpectomy from 2019 (S13-132) in which invasive ductal carcinoma was identified. Case has been reviewed in consultation with Dr. Renteria who concurs with the above diagnosis. IDC:SJ MICROSCOPIC DESCRIPTION Slides are reviewed. GROSS DESCRIPTION Received in fixative is one container labeled with the patient name and designated left breast tissue. The specimen consists of a piece of fibroadipose tissue with needle localization measuring 4.5 x 2.5 x 1.5 cm. No orientation is provided. The specimen is inked black, serially sectioned and reveals yancey-yellow adipose cut surfaces with focal fibrous areas. No obvious well-defined mass lesion is identified. The entire specimen is submitted in eight cassettes. Sections will be submitted after additional fixation. / SJ:marjorie 09/12/20 TC:0 CPT: 69377
--- NOTE | 2020-09-11 08:00 | BI_ITS ---
SURGICAL BREAST SPECIMEN RADIOGRAPH CLINICAL: Document presence of tissue clip marker in biopsy specimen. FINDINGS: Specimen shows presence of tissue clip marker. Electronically Signed: Duran Elise MD at 12:19 EDT , Service support , BI/Breast Biopsy Specimen
[2020-09-11 09:22] VITALS: BP 112/67; PULSE 65; RESP 14; TEMP 35.9; O2SAT 95; BMI 25.9
[2020-09-11] MEDS: Lactated Ringers 1,000 ML 75 ML IV (09:45)
--- NOTE | 2020-09-11 11:09 | DCINST_ITS ---
Discharge Diet: No Restrictions Discharge Activity: Return to Normal Activity, May not drive while taking narcotic pain medications. Call your doctor if your incision/area has: Continuous Slow Oozing, Foul Smelling Discharge Additional Instructions: Recommended pain control regimen - May take 600 mg ibuprofen (Motrin) and then in 3-4 hours, may take 650 mg acetaminophen (Tylenol), then in 3-4 hours may take 600 mg ibuprofen, then in 3- 4 hours may take 650 mg acetaminophen and so on for 2-3 days May take narcotic pain medication for pain that is not controlled by above and at night for comfort through the night Leave dressings in place May get dressings wet in shower - do not scrub in the area and pat dry Do not soak - no tub baths/swimming For breast surgery - Wear supportive bra during the day Swelling and bruising will occur in the area, ice packs to the area may provide comfort, apply as tolerated Avoid excessive bouncing/jumping for at least two weeks Please call for a follow up appointment at the office to be seen in 1 week for a date and time available at your convenience. Call . Allergies/Adverse Reactions: Allergies No Known Allergies Allergy (Verified 09/11/20 09:20) Medications to take at Discharge Cholecalciferol (VIT D3) [Vitamin D] 1,000 unit PO QODAY 09/05/20 Cyanocobalamin (Vitamin B-12) [Vitamin B12] 2,500 mcg PO QODAY 09/05/20 Hydrocodone Bitart/Apap 5-325 [Shinglehouse 5MG-325MG] 1 tablet PO Q8H PRN PRN 4 Days #10 tablet 09/11/20 The following prescriptions were given: Hydrocodone Bitart/Apap 5-325 [Shinglehouse 5MG-325MG] 1 tablet PO Q8H PRN PRN 4 Days #10 tablet PRN Reason: Pain Transmission Status: Sent to [facility] Primary Care Physician: Samson Bauman DO [Primary Care Provider] -
--- NOTE | 2020-09-11 11:10 | OP.PCM_ITS ---
Report of Operation Date of Procedure: 09/11/20 Pre-Operative Diagnosis: atypical papillary lesion of left breast by needle core biopsy, history of right breast cancer Post-Operative Diagnosis: same Surgery/Procedure Performed:: left breast biopsy via wire localization Description of Surgical Findings:: retroareolar lesion artists' booking representative: Diana Scherer Type of Anesthesia:: General Anesthesiologist: Reyes Cueva Specimen's removed: left breast tissue Estimated Blood Loss (mL): < 5 ml Fluids Replaced: 600 ml RL Description of Procedure: After informed consent was given, the patient was brought into the Breast Stereotactic Radiology suite. Appropriate time out protocol was followed. The patient was then placed in the prone position on the [place] stereotactic table. The patient?s left breast was placed in the opening at the head of the table. A africana studies professor compression mammogram was then obtained in the CC view. The marker clip that was previously placed was identified. Stereo pictures of the lesion were then taken for XYZ coordinates. The Kopans needle was then positioned where it would be entering into the patient?s breast. The skin at this site was then cleansed with a surgical skin preparation. The skin and subcutaneous tissues at this site were then infiltrated with 1% xylocaine. The Kopans needle was then positioned into the patient?s breast at the proper coordinates of depth. A africana studies professor film was obtained which revealed the wire in proper position. The patient was then placed in the supine position and the wire was taped into place. A unilateral mammogram in the CC and MLO view were then taken for use in the OR. The patient tolerated this portion of the procedure well and was brought to the AC awaiting surgery in the OR. The patient was then brought to the Operating Room. Appropriate time out protocol was followed. The patient was then placed on the operating table in the supine position. A wire had already been placed in the stereotactic biopsy room in the radiology department as described above. The left breast with the wire in placed was then prepped with a sterile surgical skin preparation and sterile surgical drapes were placed. The skin and subcutaneous tissues at the site of the breast lesion was then infi ltrated with 1% xylocaine with epinephrine. A transverse curvilinear skin incision was then made at the upper outer circumareolar border with a 15 blade scalpel. It was carried down through to the subcutaneous tissues. Hemostasis was controlled with electrocautery. The wire was then palpated out within the breast tissue. It was brought into the wound from outside. The breast tissue surrounding the wire was then carefully palpated out and from the surrounding tissues using electrocautery. The breast tissue, once from the breast, was then forwarded to the radiology department, where a specimen mammogram revealed that the marker clip was within the specimen. I personally reviewed this and made the determination that the tissue obtained was appropriately adequate. The breast tissue was then forwarded to pathology for analysis. The wound cavity was carefully examined. No further suspicious tissue was palpated or visualized. Hemostasis was carefully controlled with electrocautery. The subdermal tissues were then approximated with vicryl suture. The incision was then reapproximated close using running monocryl suture. Cavilon and steristrips were then placed to reinforce the skin closure. Sponge, needle, and instrument count were verified and correct at the time of skin closure. A sterile dressing was then applied. The patient was then brought to the Recovery Room in stable condition. - Complications none noted - Admit VTE Documentation VTE Present on Admission: Yes VTE Mechan Device Prophylaxis: SCD's
[2020-09-11] MEDS: Cefazolin 2 GM in 0.9% Normal Saline 100 ML IV (11:21)
[2020-09-11] MEDS: Lidocaine 1% /Epi 1:100 (20ml) 20 ML Vial (11:59)
[2020-09-11 12:14] VITALS: BP 105/68; BP 112/67; PULSE 97; RESP 16; TEMP 36.6; O2SAT 94
[2020-09-11 12:30] VITALS: BP 112/67; BP 120/65; PULSE 82; RESP 16; O2SAT 96
[2020-09-11 12:45] VITALS: BP 110/60; BP 112/67; PULSE 73; RESP 16; O2SAT 94
[2020-09-11 12:50] VITALS: BP 112/67; BP 115/88; PULSE 78; RESP 16; TEMP 36.6; O2SAT 96
[2020-09-11 13:37] VITALS: BP 112/67; BP 113/56; PULSE 72; RESP 16; TEMP 36.7; O2SAT 93
== END 2020-09-11 14:02 | disposition home or self-care (01) ==
LOC: SDC 09:00 → AC 09:01
PROVIDERS: PCP Student in an Organized Health Care Education/Training Program; Referring Provider Surgery; Visit Provider Surgery
PROC: (CPT 19125; principal; 2020-09-11 10:25)
DX: C50.912 Malignant neoplasm of unspecified site of left female breast (principal); Z20.828 Contact with and (suspected) exposure to other viral communicable diseases; Z85.3 Personal history of malignant neoplasm of breast; Z17.0 Estrogen receptor positive status [ER+]; K21.9 Gastro-esophageal reflux disease without esophagitis; Z87.42 Personal history of other diseases of the female genital tract
CPT/HCPCS: 19125; 19281; 76098; 87426; 88305; 88341; 88342; C9803; J7120; A4216; J2405